=== PATIENT | female | born 1985 | race Caucasian/White ===

== ENCOUNTER 2016-03-18 07:46 | Inpatient (IN) | payer BC ==
[2016-03-18] VITALS (25 sets, daily range): BP systolic 78–130; BP diastolic 45–94
[~2016-03-18] VITALS: Ht 162.6 cm; Wt 74.5 kg
[~2016-03-18 07:46] MED LIST: DOCUSATE SODIU100 MG PO; FERREX 28 TABL1 EACH PO; FLEXERIL5 MG PO; IBUPROFEN800 MG PO; OCUFLOX 0.100 DROP/5 LEFT EYE; PROCTOFOAM-HC10 GM PR; TYLENOL EXTRA500 MG PO
[2016-03-18] MEDS ORDERED: PRENATAL TABLE1 EAC3 PO (08:18)
[2016-03-18 09:46] LABS: HEMATOCRIT 27.4 % (36.0-46.0); MCH 21.6 PG (29.0-34.0); MCHC 30.3 G/DL (30.0-36.0); MCV 71.2 FL (83-99); MEAN PLAT.VOLUME 10.6 uM^3 (9.5-12.4); PLATELET COUNT 183 K/uL (156-360); RBC DIS.WIDTH-CV 16.6 % (11.8-14.6); RED BLOOD COUNT 3.85 M/uL (3.80-5.20); WHITE BLOOD COUNT 7.4 K/uL (4.1-10.2)
[2016-03-18 09:50] LABS: EOSINOPHIL (%) 0.7 % (0-5); EOSINOPHIL COUNT 0.1 K/uL (0-0.3); IMMATURE GRANULOCYTE (%) 0.3 % (0.0-0.7); LYMPHOCYTE COUNT 2.5 K/uL (1.0-2.8); MONOCYTE COUNT 0.5 K/uL (0-0.8); NEUTROPHIL (%) 58.2 % (45-76); NEUTROPHIL COUNT 4.3 K/uL (1.8-6.4)
[2016-03-19 07:36] LABS: EOSINOPHIL (%) 1.1 % (0-5); EOSINOPHIL COUNT 0.1 K/uL (0-0.3); HEMATOCRIT 25.9 % (36.0-46.0); IMMATURE GRANULOCYTE (%) 0.4 % (0.0-0.7); LYMPHOCYTE COUNT 3.3 K/uL (1.0-2.8); MCH 21.7 PG (29.0-34.0); MCHC 30.1 G/DL (30.0-36.0); MCV 71.9 FL (83-99); MEAN PLAT.VOLUME 10.4 uM^3 (9.5-12.4); MONOCYTE (%) 7.7 % (3-12); MONOCYTE COUNT 0.8 K/uL (0-0.8); NEUTROPHIL (%) 56.4 % (45-76); NEUTROPHIL COUNT 5.5 K/uL (1.8-6.4); PLATELET COUNT 171 K/uL (156-360); RBC DIS.WIDTH-CV 16.7 % (11.8-14.6); RBC DIS.WIDTH-SD 43.6 % (39-53)
[2016-03-19 07:47] LABS: WHITE BLOOD COUNT 9.8 K/uL (4.1-10.2)
[2016-03-19 08:16] LABS: HEMATOLOGY COMMENT 1 SMEAR COMPATIBLE; PLAT.SUFFICIENCY ADEQUATE
[2016-03-19 08:36] VITALS: BP 127/69
[2016-03-19 14:45] VITALS: BP 131/84
[2016-03-19 22:44] VITALS: BP 140/90
[2016-03-19 23:06] LABS: HEMATOCRIT 25.7 % (36.0-46.0); MCH 21.6 PG (29.0-34.0); MEAN PLAT.VOLUME 10.7 uM^3 (9.5-12.4); PLATELET COUNT 186 K/uL (156-360); RBC DIS.WIDTH-CV 16.7 % (11.8-14.6); RBC DIS.WIDTH-SD 43.3 % (39-53); RED BLOOD COUNT 3.57 M/uL (3.80-5.20); WHITE BLOOD COUNT 9.8 K/uL (4.1-10.2)
[2016-03-19 23:34] LABS: EOSINOPHIL (%) 1.7 % (0-5); EOSINOPHIL COUNT 0.2 K/uL (0-0.3); IMMATURE GRANULOCYTE (%) 0.6 % (0.0-0.7); IMMATURE GRANULOCYTE COUNT 0.1 K/uL; LYMPHOCYTE COUNT 3.8 K/uL (1.0-2.8); MONOCYTE (%) 8.5 % (3-12); MONOCYTE COUNT 0.8 K/uL (0-0.8); NEUTROPHIL (%) 50.4 % (45-76); NEUTROPHIL COUNT 4.9 K/uL (1.8-6.4)
[2016-03-20 07:23] VITALS: BP 119/83
== END 2016-03-20 13:20 | disposition home or self-care (01) | DRG 775 ==
LOC: LDRP-OP 07:46 → 2WEST 07:47 → LDRP-OP 23:32 → 2WEST 03-20 13:20 → LDRP-OP 04-18 16:19
PROVIDERS: Advanced Practice Midwife
DX: O70.0 First degree perineal laceration during delivery (principal); O99.02 Anemia complicating childbirth; D50.9 Iron deficiency anemia, unspecified; O22.43 Hemorrhoids in pregnancy, third trimester; Z3A.39 39 weeks gestation of pregnancy; Z37.0 Single live birth
CPT/HCPCS: 85025; 85025 91; C1755; J3010; J7120